=== PATIENT | male | born 1960 | race Caucasian/White ===

== ENCOUNTER → 2017-06-19 | Outpatient (CLI) | payer BC ==
--- NOTE | 2017-06-19 09:40 | MR ---
EXAMINATION TYPE: MR knee RT wo con DATE OF EXAM: 06/19/2017 8:59 AM COMPARISON: NONE HISTORY: Right knee pain TECHNIQUE: Multiplanar, multisequence imaging of the right knee is performed. FINDINGS: MEDIAL MENISCUS: Anterior and intact without tear. Posterior horn demonstrates complex tear. LATERAL MENISCUS: Anterior and posterior horns are intact without tear. CRUCIATE LIGAMENTS: Suspect partial tear midportion ACL. No evidence for complete rupture. PCL is int act. COLLATERAL LIGAMENTS: The medial collateral ligament and lateral collateral ligament complex are intact and unremarkable. EXTENSOR MECHANISM: Visualized quadriceps and patellar tendons are intact. Postoperative change at quadriceps tendon. EFFUSION: No evidence for joint effusion. POPLITEAL CYST: No popliteal/blevins cyst. TRICOMPARTMENT SPACES: The tricompartment joint spaces appear within normal limits. CARTILAGE: Small cartilaginous defect with underlying bone marrow change and small loose body anterio r medial femoral condyle. BONE MARROW SIGNAL: Bone island lateral femoral condyle. OTHER: No additional significant abnormalit y is appreciated. IMPRESSION: 1. Complex tear posterior horn medial meniscus. 2. Partial tear ACL. 3.Small cartilaginous defect with underlying bone marrow change and small loose body anterior medial femoral condyle.
== END | disposition home or self-care (01) ==
LOC: RADMRIMAIN 08:25
PROVIDERS: ATTEND Nurse Practitioner Family
DX: S83.231A Complex tear of medial meniscus, current injury, right knee, initial encounter (principal); S83.511A Sprain of anterior cruciate ligament of right knee, initial encounter

== ENCOUNTER → 2023-08-01 | Outpatient (CLI) | payer BC ==
--- NOTE | 2023-08-01 11:59 | US ---
EXAMINATION TYPE: US venous doppler duplex LE DATE OF EXAM: 08/01/2023 11:36 AM COMPARISON: NONE CLINICAL INDICATION: Male, 63 years old with history of I80.9 PHLEBITIS; right calf pain x 3/4 months . No redness or swelling. SIDE PERFORMED: Bilateral TECHNIQUE: The lower extremity deep venous system is examined utilizing real time linear array sonog genaro with graded compression, doppler sonography and color-flow sonography. VESSELS IMAGED: Common Femoral Vein Deep Femoral Vein Greater Saphenous Vein * Femoral Vein Popliteal Vein Small Saphenous Vein * Proximal Calf Veins (* superficial vessels) Right Leg: Negative for DVT Left Leg: Negative for DVT IMPRESSION: Grayscale, color doppler, spectral doppler imaging performed of the deep veins of the lo wer extremities. There is normal flow, compressibility, vascular waveforms.
== END | disposition home or self-care (01) ==
LOC: RADUSWWP 11:15
PROVIDERS: ATTEND Orthopaedic Surgery
DX: I80.9 Phlebitis and thrombophlebitis of unspecified site (principal); M23.221 Derangement of posterior horn of medial meniscus due to old tear or injury, right knee; M17.0 Bilateral primary osteoarthritis of knee
CPT/HCPCS: 93970